=== PATIENT | male | born 1990 | race Caucasian/White ===

== ENCOUNTER 2017-12-02 19:42 | Emergency (ER) | payer OTHER ==
[~2017-12-02 19:42] MED LIST: MULT-506 PO; ULT50X PO
[2017-12-02] MEDS ORDERED: LORAZEPAM 1 MG TAB ONE (20:10)
[2017-12-02] MEDS ORDERED: ATIVAN 1MG HOMEPACK ONE (20:45)
--- NOTE | 2017-12-03 12:32 | EMERGENCY ROOM VISIT NOTE ---
History Chief Complaint: ANXIETY Stated Complaint: ANXIETY History of Present Illness The patient is a 27 year old male who presents to the Emergency Room with complaints of constant anxiety and panic. The patient states that he has a history of anxiety and panic. He has panic attacks several times a month. Usually, he is able to control the panic with deep breathing and just walking around and controlling his thoughts. Today, he was alone all day and the anxiety continued to build. When his family arrived at the house, he was quite anxious and they felt he would need something to break the panic. He began to hyperventilate and had carpal pedal spasm as well as tingling of his hands and face and feet. The ambulance was called. The patient arrives feeling somewhat better. No medications were administered in route. Patient denies any real chest pain. He does state he feels better than he did earlier. He admits to sweating earlier but this is resolving. The patient has been in baseline health. He denies any additional stressors, he is not suicidal. His family is with him at the bedside. Patient states that he used to use Ativan for severe attacks like this, this medication has been discontinued by his physicians. Review of Systems ROS: Please see HPI. At least 10 systems in total were reviewed and otherwise negative. Past Medical/Surgical History Medical Problems: (1) Acute necrotizing pancreatitis (2) Acute pancreatitis (3) Alcohol-induced pancreatitis (4) Bleeding stomach ulcer (5) Central line infection (6) Kidney stones (7) Pancreatic cyst (8) Pneumonia (9) Respiratory failure (10) Sepsis Surgical Problems: (1) History of cholecystectomy Family History FHx: pancreatic disease Social History Smoking Status: Current Every Day Smoker Alcohol Use: none Marital Status: single Housing Status: lives with family Current/Historical Medications Scheduled Multivitamin (Multivitamin), 1 TAB PO DAILY Scheduled PRN Tramadol HCl (Tramadol HCl), 50 MG PO Q6H PRN for Pain Physical Exam Physical Exam GENERAL: Patient is mildly anxious. HEENT: No acute trauma, normocephalic atraumatic, mucous membranes moist, no nasal congestion, no scleral icterus. NECK: No stridor, no adenopathy, no meningismus, trachea is midline. LUNGS: Clear to auscultation bilaterally, no wheeze, no rhonchi, breath sounds equal. HEART: Without murmurs gallops or rubs, regular rate and rhythm. ABDOMEN: Soft, nontender, bowel sounds positive, no hernias, no peritonitis. EXTREMITIES: No cyanosis or edema, full range of motion of all the joints without pain or difficulty, no signs for acute trauma. NEUROLOGIC: Oriented x 3, no acute motor or sensory deficits, no focal weakness. Subtle upper extremity tremor noted. SKIN: No rash, no jaundice, no diaphoresis. Psych: The patient is somewhat anxious, he denies being suicidal. He is cooperative. Medical Decision & Procedures ECG Per My Interpretation Indication: SOB/dyspnea Rate (beats per minute): 72 Rhythm: normal sinus Findings: no acute ischemic change, no ectopy, other (No ST elevation or PVCs.) Medical Decision The patient presents with anxiety and panic. Differential diagnosis includes dysrhythmia, suicidal ideation, alcohol or drug abuse, thyroid disorder, SD, infection, pneumothorax. An EKG was done, the patient has a normal sinus rhythm, no dysrhythmia or acute ischemia. On exam, there were no cardiac murmurs. His lungs were clear. He had no focal neurologic deficits. He appeared slightly anxious but was not in acute panic. I had a discussion with the patient. He received 2 mg of Ativan sublingual. This helped him markedly. He is being discharged with an Ativan home pack and I did write a prescription for Vistaril to use for anxiety and panic. He will talk with his physician as an outpatient. He was encouraged to return here if worsening or if feeling suicidal. Medication Reconcilliation Current Medication List: was personally reviewed by me Impression Primary Impression: Panic attack Departure Information Dispostion Home / Self-Care Condition GOOD Referrals Santy Vides MD (PCP) Forms HOME CARE DOCUMENTATION FORM, IMPORTANT VISIT INFORMATION Patient Instructions My [facility]
== END 2017-12-02 20:45 | disposition home or self-care (01) ==
LOC: C.EDC 19:42
DX: F41.0 Panic disorder [episodic paroxysmal anxiety] (principal); F17.200 Nicotine dependence, unspecified, uncomplicated; Z83.49 Family history of other endocrine, nutritional and metabolic diseases